=== PATIENT | male | born 1955 | race Caucasian/White ===

== ENCOUNTER 2016-12-04 11:15 | Emergency (ER) | payer OTHER ==
[~2016-12-04] VITALS: Ht 175.3 cm; Wt 87.0 kg
[2016-12-04 11:19] VITALS: BP 133/86; PULSE 79; RESP 16; TEMP 98.5; O2SAT 97
[2016-12-04] MEDS ORDERED: SODIUM CHLOR 0.9% 1000 ML INJ 1,000 ML IV SCH (11:40)
[2016-12-04] MEDS ORDERED: SODIUM CHLORIDE 0.9% FLUSH 10 ML FLUSH IV FLUSH PRN (11:45)
[2016-12-04 11:52] LABS: AUTOMATED NEUTROPHIL # 7.2 TH/MM3 (1.8-7.7); BASOPHIL # 0.3 TH/MM3 (0-0.2); BASOPHIL % 2.4 % (0.0-2.0); EOSINOPHIL # 0.2 TH/MM3 (0-0.4); EOSINOPHIL % 1.5 % (0.0-4.0); HEMATOCRIT 42.4 % (39.0-51.0); LYMPHOCYTE # 2.4 TH/MM3 (1.0-4.8); MEAN CELL VOLUME 95.4 FL (80.0-100.0); MEAN CORPUSCULAR HEMOGLOBIN 32.7 PG (27.0-34.0); MEAN CORPUSCULAR HGB CONC 34.2 % (32.0-36.0); NEUT % 68.1 % (16.0-70.0); PLATELET COUNT 238 TH/MM3 (150-450); RED BLOOD COUNT 4.44 MIL/MM3 (4.50-5.90); RED CELL DISTRIBUTION WIDTH 12.4 % (11.6-17.2); WHITE BLOOD COUNT 10.6 TH/MM3 (4.0-11.0)
[2016-12-04 11:53] LABS: HEMO FLAGS AUTO DIFF
[2016-12-04 11:56] LABS: BLOOD, URINE TRACE (NEG); GLUCOSE,URINE NEG (NEG); KETONE, URINE NEG (NEG); NITRITE,URINE NEG (NEG)
--- NOTE | 2016-12-04 12:00 | PD ---
HPI Chief Complaint: Abdominal Pain Time Seen by Provider: 11:25 Travel History International Travel<30 days: No Contact w/Intl Traveler<30days: No Traveled to known affect area: No History of Present Illness HPI This is a 61-year-old man who presents to the emergency department complaining of abdominal pain for the past 2-3 days. Pain is more in the lower abdomen. The waxing and waning some, was especially severe yesterday but is little bit improved today. No fevers or chills. No change in his bowel movements. No urinary symptoms. He's had diverticulitis one time in the past week years ago. He has no history of abdominal surgeries. He is down here visiting from out of town. History Past Medical History Narrative Medical Diverticulitis Medical History: Denies Significant Hx Tetanus Vaccination: < 5 Years Social History Alcohol Use: Yes (DAILY) Tobacco Use: No Allergies-Medications (Allergen,Severity, Reaction): Coded Allergies: Egg Allergy (Verified Allergy, Unknown, CHEST TIGHTNESS, 12/04/16) Mushroom (Verified Allergy, Unknown, CHEST TIGHTNESS, 12/04/16) Reported Meds & Prescriptions Reported Meds & Active Scripts Active No Active Prescriptions or Reported Medications Review of Systems Except as stated in HPI: all other systems reviewed are Neg Physical Exam Narrative GENERAL: Well-appearing 61-year-old man, no acute distress. SKIN: Focused skin assessment warm/dry. HEAD: Atraumatic. Normocephalic. CARDIOVASCULAR: Regular rate and rhythm. No murmur appreciated. RESPIRATORY: No accessory muscle use. Clear to auscultation. Breath sounds equal bilaterally. GASTROINTESTINAL: Abdomen is obese and soft. Is mild lower abdominal minimal suprapubic tenderness. No rebound or guarding. MUSCULOSKELETAL: No obvious deformities. No edema. NEUROLOGICAL: Awake and alert. No obvious cranial nerve deficits. Motor grossly within normal limits. Normal speech. Data Data Last Documented VS Vital Signs Date Time Temp Pulse Resp B/P Pulse Ox O2 Delivery O2 Flow Rate FiO2 12/04/16 11:19 98.5 79 16 133/86 97 Orders Complete Blood Count With Diff (12/04/16 11:40) Comprehensive Metabolic Panel (12/04/16 11:40) Urinalysis - C+S If Indicated (12/04/16 11:40) Ct Abd/Pel W Iv Contrast(Rout) (12/04/16 11:40) Iv Access Insert/Monitor (12/04/16 11:40) Sodium Chlor 0.9% 1000 Ml Inj (Ns 1000 M (12/04/16 11:40) Sodium Chloride 0.9% Flush (Ns Flush) (12/04/16 11:45) Iohexol 350 Inj (Omnipaque 350 Inj) (12/04/16 12:23) Labs Laboratory Tests Test 12/04/16 11:45 White Blood Count 10.6 TH/MM3 Red Blood Count 4.44 MIL/MM3 Hemoglobin 14.5 GM/DL Hematocrit 42.4 % Mean Corpuscular Volume 95.4 FL Mean Corpuscular Hemoglobin 32.7 PG Mean Corpuscular Hemoglobin 34.2 % Concent Red Cell Distribution Width 12.4 % Platelet Count 238 TH/MM3 Mean Platelet Volume 8.0 FL Neutrophils (%) (Auto) 68.1 % Lymphocytes (%) (Auto) 23.0 % Monocytes (%) (Auto) 5.0 % Eosinophils (%) (Auto) 1.5 % Basophils (%) (Auto) 2.4 % Neutrophils # (Auto) 7.2 TH/MM3 Lymphocytes # (Auto) 2.4 TH/MM3 Monocytes # (Auto) 0.5 TH/MM3 Eosinophils # (Auto) 0.2 TH/MM3 Basophils # (Auto) 0.3 TH/MM3 CBC Comment AUTO DIFF Differential Comment AUTO DIFF CONFIRMED Urine Collection Type CLEAN CATCH Urine Color YELLOW Urine Turbidity SLIGHT Urine pH 6.0 Urine Specific [place] 1.022 Urine Protein TRACE mg/dL Urine Glucose (UA) NEG mg/dL Urine Ketones NEG mg/dL Urine Occult Blood TRACE Urine Nitrite NEG Urine Bilirubin NEG Urine Leukocyte Esterase NEG Urine RBC 4-9 /hpf Urine Squamous Epithelial 0-5 /hpf Cells Urine Amorphous Sediment FEW Microscopic Urinalysis Comment CULT NOT INDICATED Urine Collection Time 1145 Sodium Level 137 MEQ/L Potassium Level 4.1 MEQ/L Chloride Level 104 MEQ/L Carbon Dioxide Level 25.5 MEQ/L Anion Gap 8 MEQ/L Blood Urea Nitrogen 13 MG/DL Creatinine 1.00 MG/DL Estimat Glomerular Filtration 76 ML/MIN Rate Random Glucose 93 MG/DL Calcium Level 9.2 MG/DL Total Bilirubin 1.1 MG/DL Aspartate Amino Transf 20 U/L (AST/SGOT) Alanine Aminotransferase 24 U/L (ALT/SGPT) Alkaline Phosphatase 84 U/L Total Protein 8.2 GM/DL Albumin 3.9 GM/DL [facility] Medical Decision Making Medical Screen Exam Complete: Yes Emergency Medical Condition: Yes Interpretation(s) LABS: CBC is unremarkable. CMP is unremarkable. UA is unremarkable. CT abdomen and pelvis: Acute sigmoid diverticulitis. Differential Diagnosis Diverticulitis, appendicitis, UTI, other Narrative Course Medical decision-making new para this a well 61 year-old woman presents emergent arm lower abdominal discomfort and some tenderness. He likely has recurrent diverticulitis. He's only had one time before. He has minimal tenderness. He looks otherwise well. We'll check labs urine and CT, likely treatment for diverticulitis. Diagnosis Primary Impression: Diverticulitis large intestine w/o perforation or abscess w/o bleeding Additional Instructions: Take Augmentin as prescribed. Take Lortab if needed for severe pain. Return to the emergency department for any worsening abdominal pain, high fevers , or any other new or worsening symptoms. Follow up with her primary doctor in 5-7 days if you're not completely improved. Med/Other Pt SpecificInfo: Prescription(s) given Scripts Amoxicillin-Clavulanate (Augmentin)875-125 Mg Tab1 Tab PO BID 10 Days Ref 0 Prov:Luis Miguel Pierson MD 12/04/16 Disposition: 01 DISCHARGE HOME Condition: Stable Luis Miguel Pierson MD Dec 04, 2016 12:00
[2016-12-04 12:03] LABS: CHLORIDE 104 MEQ/L (98-107); POTASSIUM 4.1 MEQ/L (3.5-5.1); SODIUM (NA) 137 MEQ/L (136-145)
[2016-12-04 12:06] LABS: ANION GAP 8 MEQ/L (5-15); BICARBONATE 25.5 MEQ/L (21.0-32.0)
[2016-12-04 12:07] LABS: BLOOD UREA NITROGEN 13 MG/DL (7-18)
[2016-12-04 12:09] LABS: ALT (GPT) 24 U/L (12-78); AST (GOT) 20 U/L (15-37); GLOMERULAR FILTRATION RATE 76 ML/MIN (>89)
[2016-12-04 12:11] LABS: TOTAL BILIRUBIN ADULT 1.1 MG/DL (0.2-1.0)
[2016-12-04 12:12] LABS: ALKALINE PHOSPHATASE 84 U/L (45-117)
[2016-12-04 12:14] LABS: METHOD OF COLLECTION CLEAN CATCH; URINE COLOR YELLOW (YELLW/STRAW)
[2016-12-04 12:15] LABS: COMMENT (UR) CULT NOT INDICATED; COMMENT2 (UR) MUCOUS PRESENT; CULTURE IF INDICATED CULT NOT INDICATED; SQUAMOUS EPITHELIAL CELL URINE 0-5 /hpf (0-5)
[2016-12-04 12:23] LABS: SCAN/DIFF AUTO DIFF CONFIRMED
[2016-12-04] MEDS ORDERED: IOHEXOL 350 MG/ML 10 ML VIAL (for RAD DIAG) IV ONE (12:23)
--- NOTE | 2016-12-04 12:40 | RADRPT ---
EXAM DATE/TIME: 12/04/2016 12:10 [place] COMPARISON: No previous studies available for comparison. INDICATIONS : Left to mid lower quadrant pain. IV CONTRAST: 95 cc Omnipaque 350 (iohexol) IV ORAL CONTRAST: No oral contrast ingested. RADIATION DOSE: 14.56 CTDIvol (mGy) MEDICAL HISTORY : None SURGICAL HISTORY : None. ENCOUNTER: Initial ACUITY: 2 days PAIN SCALE: 5/10 LOCATION: Left lower quadrant TECHNIQUE: Volumetric scanning of the abdomen and pelvis was performed. Using automated exposure control and ad justment of the mA and/or kV according to patient size, radiation dose was kept as low as reasonably achievable to obtain optimal diagnostic quality images. DICOM format image data is available electro nically for review and comparison. FINDINGS: Lung bases are clear except calcified granulomata.. In the mid sigmoid there is mural thickening and perisigmoid inflammatory changes extending over a le ngth of about 5 cm and characteristic of sigmoid diverticulitis. No discrete or drainable abscess is present. There is mild thickening of the bladder wall as well. No free air or free fluid. No bowel ob struction. Appendix is normal. Mild fatty liver. Spleen, adrenals, kidneys and pancreas are unremarkable. No calcified gallstones or biliary ductal dilatation. CONCLUSION: 1. Acute sigmoid diverticulitis without abscess, obstruction, free fluid or free air. 2. Mild thickening of the bladder wall. Michael Frias MD on December 04, 2016 at 12:34 Board Certified Radiologist. This report was verified electronically.
[2016-12-04] MEDS ORDERED: AUGM875T3 PO (12:48)
[2016-12-04] MEDS ORDERED: HYDR-3533 PO (12:50)
[2016-12-04 12:52] VITALS: BP 120/80; PULSE 70; RESP 16; O2SAT 98
[2016-12-04] MEDS ORDERED: AMOXICILLIN/CLAVULANATE K 875 MG TAB PO ONE (13:00)
== END 2016-12-04 13:47 | disposition home or self-care (01) ==
LOC: PHED 11:15
DX: K57.32 Diverticulitis of large intestine without perforation or abscess without bleeding (principal)
CPT/HCPCS: 74177; 80053; 81001; 85025; 99285; J7030; Q9967